=== PATIENT | male | born 1940 | race Caucasian/White ===

== ENCOUNTER 2017-08-07 11:59 | Emergency (ER) | payer OTHER ==
[~2017-08-07] VITALS: Ht 182.9 cm; Wt 87.4 kg
[2017-08-07 12:36] LABS: BASOPHIL (%) 0.4 % (0-1); BASOPHIL COUNT 0.1 K/uL (0-0.1); EOSINOPHIL (%) 1.7 % (0-5); EOSINOPHIL COUNT 0.2 K/uL (0-0.3); HEMATOCRIT 45.2 % (38.0-50.0); IMMATURE GRANULOCYTE (%) 0.2 % (0.0-0.7); LYMPHOCYTE (%) 12.4 % (15-42); LYMPHOCYTE COUNT 1.6 K/uL (1.0-2.8); MCH 31.1 PG (29.0-34.0); MCHC 35.4 G/DL (30.0-36.0); MCV 87.9 FL (86-99); MONOCYTE (%) 6.8 % (3-12); MONOCYTE COUNT 0.9 K/uL (0-0.8); NEUTROPHIL (%) 78.5 % (45-76); NEUTROPHIL COUNT 10.1 K/uL (1.8-6.4); PLATELET COUNT 221 K/uL (156-360); RBC DIS.WIDTH-CV 12.3 % (11.8-14.6); RBC DIS.WIDTH-SD 39.6 % (39-53); RED BLOOD COUNT 5.14 M/uL (4.00-5.50); WHITE BLOOD COUNT 12.9 K/uL (4.1-10.2)
[2017-08-07 12:50] LABS: ALBUMIN 4.2 g/dL (3.2-4.8)
[2017-08-07 12:51] LABS: CHLORIDE 104 mEq/L (99-109); SODIUM 137 mEq/L (136-147)
[2017-08-07 12:53] LABS: GLUCOSE 226 mg/dL (70-99); TOTAL PROTEIN 6.9 g/dL (6.4-8.3)
[2017-08-07 12:55] LABS: TOTAL BILIRUBIN 1.1 mg/dL (0.0-1.0)
[2017-08-07 12:56] LABS: ALKALINE PHOSPHATASE 66 IU/L (3-129)
[2017-08-07 12:57] LABS: CREATININE 1.1 mg/dL (0.6-1.3); GFR ESTIMATE (CALCULATED) > 59 mL/min/ (58.99-99999)
[2017-08-07 12:58] LABS: AST (GOT) 16 IU/L (2-34); UREA NITROGEN (BUN) 13 mg/dL (9-23)
[2017-08-07 12:59] LABS: ALT (GPT) 23 IU/L (3-49); TROP-I INTERPRETATION NEGATIVE; TROPONIN-I 0.02 ng/mL (0.0-0.30)
[2017-08-07 13:00] LABS: LIPASE 12 U/L (1.0-51.0)
[2017-08-07 14:17] LABS: APPEARANCE CLEAR ((CLEAR)); BILIRUBIN NEGATIVE; BLOOD MODERATE; COLOR YELLOW ((YELLOW)); GLUCOSE (STRIP) 150; KETONES 5; LEUKOCYTES NEGATIVE; NITRITE NEGATIVE; PROTEIN (STRIP) NEGATIVE; SPECIFIC GRAVITY 1.014 (1.000-1.030); UROBILINOGEN 0.2 MG/DL (0.2-1.0)
[2017-08-07 14:20] LABS: BACTERIA NONE SEEN /HPF; EPITHELIAL CELLS NONE SEEN /HPF; MUCUS TRACE /LPF; RED BLOOD CELLS TNTC /HPF (0-5); UCUL ADDED? YES; WHITE BLOOD CELLS 0-5 /HPF (0-5)
[2017-08-07] MEDS ORDERED: PERCOCET 5/31 TABLET PO (15:16)
[2017-08-07 16:23] VITALS: BP 150/67
== END 2017-08-07 16:28 | disposition home or self-care (01) ==
LOC: EME 11:59
PROVIDERS: Emergency Medicine
DX: N13.2 Hydronephrosis with renal and ureteral calculous obstruction (principal); R59.1 Generalized enlarged lymph nodes; R91.8 Other nonspecific abnormal finding of lung field; I44.0 Atrioventricular block, first degree; I25.2 Old myocardial infarction; Z95.5 Presence of coronary angioplasty implant and graft; Z87.891 Personal history of nicotine dependence; Z86.39 Personal history of other endocrine, nutritional and metabolic disease; Z86.79 Personal history of other diseases of the circulatory system
CPT/HCPCS: 71275; 74174; 80053; 81003; 83690; 84484; 85025; 87086; 93005; 99281; 99284; J2270; J7030